=== PATIENT | male | born 1965 | race Caucasian/White ===

== ENCOUNTER 2016-12-15 22:43 | Emergency (ER) | payer OTHER ==
[2016-12-16 00:20] VITALS: BP 158/96
--- NOTE | 2016-12-16 00:20 | EDM.PDOC ---
ED HPI GENERAL MEDICAL PROBLEM - General Chief Complaint: Upper Extremity Injury/Pain Stated Complaint: LT ARM PAIN Time Seen by Provider: 12/15/16 22:45 Source of Information: Reports: Patient History Limitations: Reports: No Limitations - History of Present Illness INITIAL COMMENTS - FREE TEXT/NARRATIVE: 51 y.o.w.m. came to the ed shortly after he injured his left forearm at work. No other injuries, no loss of function,. PE: WDWN WM in NAD Imaging: left forearm: Neg Impression: SQ hematoma left forarm, abrasion left forearm Tx: Neosporine ointmnent, YAQUELIN wrap, pt refused pain meds Plan: D/C with instructions. Onset: Today Onset Date: 12/15/16 Onset Time: 21:45 Duration: Hour(s):, Resolved Prior to Arrival Location: Reports: Upper Extremity, Left Quality: Reports: Burning, Dull Severity: Moderate Improves with: Reports: Cold Therapy, Medication Worsens with: Reports: Movement Context: Reports: Trauma Associated Symptoms: Reports: No Other Symptoms L forearm Pain Score (Numeric/FACES): 4 - Related Data Allergies Allergy/AdvReac Type Severity Reaction Status Date / Time No Known Allergies Allergy Verified 12/15/16 22:49 Home Meds: Home Meds NK [No Known Home Meds] 02/22/15 [History] Past Medical History - Past Health History Medical/Surgical History: Denies Medical/Surgical History Respiratory History: Reports: Sleep Apnea Gastrointestinal History: Reports: GERD, Hemorrhoids Dermatologic History: Reports: Seborrheic Dermatitis Other Dermatologic History: KERATOSIS, 2ND DEGREE SALAZAR 03/2015 - Infectious Disease History Infectious Disease History: Reports: Chicken Pox - Past Surgical History HEENT Surgical History: Reports: Oral Surgery Social & Family History - Family History Family Medical History: Noncontributory - Tobacco Use Smoking Status *Q: Never Smoker Second Hand Smoke Exposure: No - Caffeine Use Caffeine Use: Reports: Soda - Recreational Drug Use Recreational Drug Use: No Review of Systems - Review of Systems Review Of Systems: See Below Constitutional: Reports: No Symptoms Eyes: Reports: No Symptoms Ears: Reports: No Symptoms Nose: Reports: No Symptoms Mouth/Throat: Reports: No Symptoms Respiratory: Reports: No Symptoms Cardiovascular: Reports: No Symptoms GI/Abdominal: Reports: No Symptoms Genitourinary: Reports: No Symptoms Musculoskeletal: Reports: Arm Pain, Muscle Pain Skin: Reports: Bruising Neurological: Reports: No Symptoms Psychiatric: Reports: No Symptoms ED EXAM, GENERAL - Physical Exam Exam: See Below Exam Limited By: No Limitations General Appearance: Alert, WD/WN, Mild Distress Eye Exam: Bilateral Eye: Normal Inspection Ears: Normal External Exam Ear Exam: Bilateral Ear: Auricle Normal Nose: Normal Inspection Throat/Mouth: Normal Inspection Head: Atraumatic, Normocephalic Neck: Normal Inspection Respiratory/Chest: No Respiratory Distress, Lungs Clear, Normal Breath Sounds Cardiovascular: Normal Peripheral Pulses, Regular Rate, Rhythm, No Edema, No Gallop Peripheral Pulses: 1+: Femoral (L), Femoral (R) GI/Abdominal: Normal Bowel Sounds, Soft, Non-Tender (Male) Exam: Deferred Rectal (Males) Exam: Deferred Back Exam: Normal Inspection, Full Range of Motion Extremities: Normal Range of Motion, Normal Capillary Refill, Arm Pain (left forearm, ) Neurological: Alert, Oriented, CN II-XII Intact, Normal Cognition, Normal Gait, No Motor/Sensory Deficits Psychiatric: Normal Affect, Normal Mood Skin Exam: Warm, Dry, Intact, Rash (abrasion left forearm, SQ heamtoma left forearm.) Lymphatic: No Adenopathy Course - Vital Signs Last Recorded V/S: Last Vital Signs Temp 36.6 C 12/15/16 22:44 Pulse 85 12/15/16 22:44 Resp 18 12/16/16 00:13 BP 158/96 H 12/16/16 00:13 Pulse Ox 100 12/16/16 00:13 - Orders/Labs/Meds Orders: Active Orders 24 hr Category Date Time Status Forearm 2V Lt [CR] Stat Exams 12/15/16 22:59 Taken Departure - Departure Time of Disposition: 00:11 Disposition: Home, Self-Care 01 Condition: Good Clinical Impression: Traumatic hematoma of left forearm Qualifiers: Encounter type: initial encounter Qualified Code(s): S50.12XA - Contusion of left forearm, initial encounter Abrasion of left forearm, initial encounter Qualifiers: Encounter type: initial encounter Qualified Code(s): S50.812A - Abrasion of left forearm, initial encounter - Discharge Information Instructions: Wrist Pain, [id number], Hematoma, [id number] Referrals: PCP,None [Primary Care Provider] - Forms: ED Department Discharge Additional Instructions: ICE, Rest and elevation, please use left arm for light duty only. Please apply YAQUELIN wrap at daytime, please follow up with your PMD in 2-3 days. Please apply neosporine ointment to wound twice daily for 5 days, please come back to the ed if your symptoms get acutely worse. Please check on TD status in next 72 hours. - My Orders Last 24 Hours: My Active Orders 12/15/16 22:59 Forearm 2V Lt [CR] Stat - Assessment/Plan Last 24 Hours: My Active Orders 12/15/16 22:59 Forearm 2V Lt [CR] Stat
--- NOTE | 2016-12-16 10:40 | CR ---
INDICATION: Hit in arm with crank, mid to distal one-third of arm. LEFT FOREARM: Frontal and lateral views of the left forearm revealed suggestion of soft tissue swelling volar aspect of the forearm in its mid portion, compatible with injury. No evidence of a fracture, dislocation, or other significant acute bone or joint abnormality was identified. There is noted a tiny spur off the cranial posterior aspect of the olecranon with a tiny calcific density just proximal to the spur, likely on the basis of a previous soft tissue injury with dystrophic calcification. MTDD
== END 2016-12-16 00:25 | disposition home or self-care (01) ==
LOC: FB.ED 22:43
DX: S50.12XA Contusion of left forearm, initial encounter (principal); S50.812A Abrasion of left forearm, initial encounter; K21.9 Gastro-esophageal reflux disease without esophagitis; X58.XXXA Exposure to other specified factors, initial encounter
CPT/HCPCS: 73090-LT; 99000; 99283